=== PATIENT | female | born 1950 | race Caucasian/White ===

== ENCOUNTER → 2016-05-10 | Outpatient (CLI) | payer OTHER | LOC: BRMIMAGING 13:04 | DX: Z12.31 Encounter for screening mammogram for malignant neoplasm of breast (principal) | CPT/HCPCS: G0202 ==

== ENCOUNTER → 2016-12-27 | Outpatient (CLI) | payer OTHER | LOC: BRMIMAGING 12:09 | PROVIDERS: ATTEND Physician Assistant Medical | DX: R05 Cough (principal) | CPT/HCPCS: 71020-PO ==

== ENCOUNTER → 2017-05-12 | Outpatient (CLI) | payer OTHER | LOC: BRMIMAGING 11:27 | PROVIDERS: ATTEND Family Medicine | DX: Z12.31 Encounter for screening mammogram for malignant neoplasm of breast (principal) ==

== ENCOUNTER → 2017-06-23 | Outpatient (CLI) | payer OTHER | LOC: BRMIMAGING 14:27 | PROVIDERS: ATTEND Family Medicine | DX: Z13.820 Encounter for screening for osteoporosis (principal); M85.89 Other specified disorders of bone density and structure, multiple sites; Z78.0 Asymptomatic menopausal state ==

== ENCOUNTER → 2018-06-21 | Outpatient (CLI) | payer OTHER | LOC: BRMIMAGING 10:44 | PROVIDERS: ATTEND Physician Assistant Medical | DX: Z12.31 Encounter for screening mammogram for malignant neoplasm of breast (principal) ==